=== PATIENT | female | born 2005 | race Caucasian/White ===

== ENCOUNTER 2023-07-22 16:12 | Emergency (ER) | payer BC, SELFPAY ==
[2023-07-22 16:15] VITALS: BP 138/84; BMI 30.7
[2023-07-22] MEDS: ZOFRAN ODT (ORALLY DISINTEGRATING) 4 MG PO (16:26)
[2023-07-22 16:30] LABS: % Basophils 0.4 % (0-2); % Immature Granulocytes 0.5 % (0-0.5); % Lymphocytes 4.9 % (20.5-51.1); % Monocytes 2.3 % (1.7-9.3); % Neutrophils 91.9 % (42.2-75.2); Absolute Basophils 0.1 10^3/uL (0-0.2); Absolute Immature Granulocytes 0.1 10^3/uL (0-0.05); Absolute Lymphocytes 0.8 10^3/uL (1.2-3.4); Absolute Monocytes 0.4 10^3/uL (0.1-0.6); Absolute Neutrophils 15.1 10^3/uL (1.4-6.5); Hematocrit 40.2 % (37.0-47.0); Hemoglobin 14.1 g/dL (12.0-16.0); Mean Corp Hgb Conc. 35.1 g/dL (33.0-37.0); Mean Corpuscular Hgb 27.9 pg (27.0-31.0); Mean Corpuscular Volume 79.4 fL (81.0-99.0); Mean Platelet Volume 11.9 fL (7.4-10.4); Nucleated Red Blood Cells % 0 %; Platelet Count 348 10^3/uL (130-400); Red Blood Cell Count 5.06 10^6/uL (4.20-5.40); Red Cell Dist. Width 12.9 % (11.5-14.5); White Blood Cell Count 16.4 10^3/uL (4.8-10.8)
[2023-07-22 16:34] LABS: Urine Albumin Trace (Neg - Trace); Urine Bilirubin Negative (Negative); Urine Character Clear (Clear); Urine Color Yellow; Urine Glucose Negative (Negative); Urine Ketone 2+ (Negative); Urine Leukocyte Trace (Negative); Urine Nitrite Negative (Negative); Urine Occult Blood 3+ (Negative); Urine Specific Gravity 1.015 (<1.030); Urine Urobilinogen Negative (Neg - 1+)
[2023-07-22 16:42] LABS: HCG, Serum Qualitative Screen Negative
[2023-07-22 16:46] LABS: AST (SGOT) 31 U/L (14-36); Albumin 5.3 g/dl (3.5-5.0); Alkaline Phosphatase 60 U/L (38-126); Blood Urea Nitrogen 12 mg/dl (7-17); Calcium 10.6 mg/dl (8.4-10.2); Carbon Dioxide 17 mmol/L (22-30); Chloride 108 mmol/L (98-107); Estimated Creatinine Clearance > 125 ml/min; Glucose 123 mg/dl (70-99); Lipase 43 U/L (23-300); Potassium 4.5 mmol/L (3.5-5.1); Sodium 138 mmol/L (135-145); Total Protein 8.3 g/dl (6.3-8.2); eGFR > 60.00
[2023-07-22 16:48] LABS: Urine Mucus Few; Urine Red Blood Cell 0-2 /HPF (0-2)
[2023-07-22 17:13] LABS: ALT (SGPT) 28 U/L (0-35)
--- NOTE | 2023-07-22 17:28 | ED.GENMED ---
History of Present Illness
General
Chief Complaint: Abdominal Pain
Time Seen by Provider: 07/22/23 17:28
Travel History
Have you had any contact with someone who has COVID-19?: No
Do you have any symptoms of coronavirus? Fever > 100 degrees, chills, cough, shortness of breath, sore throat, loss of taste or smell, muscle aches, or headache?: No
History of Present Illness
History of Present Illness:
HPI: The patient was on a camping trip over this weekend and this morning while still in [place], she developed diffuse abdominal pain, vomiting, and diarrhea. She thought maybe she could have a gallbladder issue however she reports pain in the
lower abdomen as well. She has been told that she had cannabinoid hyperemesis syndrome in the past however states that she does not smoke daily anymore and this feels different. She felt a bloated sensation.
EXAM:
GENERAL: Well appearing in minimal distress
HEENT: Moist oral mucosa
CARDIOVASCULAR: No murmurs, normal heart rate, regular rhythm, No chest wall tenderness
PULMONARY: No respiratory distress, breath sounds are clear and equal
ABDOMEN: Soft with no peritoneal signs, minimal diffuse tenderness, no distention
NEUROLOGIC: Excellent strength all extremities, no coordination deficits
PSYCHIATRIC: Appropriate mental status, normal insight and judgement
EXTREMITIES: Nontender, no edema, moves all extremities equally
SKIN: No rash, no lesions
TIME OF INITIAL ENCOUNTER: 5:30 PM
NUMBER AND COMPLEXITY OF PROBLEMS ADDRESSED AT THE ENCOUNTER
� Chronic conditions affecting care: History of cannabinoid hyperemesis syndrome
� Acute Exacerbation and/or Progression of Chronic Illness: This is an acute problem
� Differential Diagnosis includes: Gastroenteritis related to viral syndrome or foodborne illness, appendicitis/cholecystitis very unlikely as she has no focal findings on examination, highly doubt bowel obstruction, mesenteric
adenitis, epiploic appendagitis
AMOUNT AND/OR COMPLEXITY OF DATA TO BE REVIEWED AND ANALYZED
� I performed an independent evaluation of and my interpretation is:
EKG:
CT:
X-rays:
Laboratory Studies: White count 16.4 with left shift, bicarb 17, hCG negative, LFTs and lipase unremarkable
Other:
� Review of other/old records: No old records available for review
� Clinical information was obtained by an independent historian: I spoke to the boyfriend at bedside
� Prescriptions/Medications Considered but not given:
� Further testing considered but not performed: Considered imaging given the leukocytosis however the patient has associated diarrhea and overall feels markedly improved after 2 L of fluid.
RISK OF COMPLICATIONS AND/OR MORBIDITY OR MORTALITY OF PATIENT MANAGEMENT
� Social determinants of health affecting care: Lives at home
� Discussion with other providers:
� Escalation of care including admission/observation vs risk of discharge considered: Will give fluids as I suspected degree of dehydration given the low bicarb level and ketonuria. Also try Toradol and Pepcid. Patient feels
markedly improved on reassessment at 7:25 PM. Will hold off on any further testing at this time. Suspect gastroenteritis type of illness related to either viral syndrome or foodborne illness.
Phy Exam
Physical Exam
Physical Exam:
See HPI
Course
Orders/Labs/Results
Orders:
Orders
07/22/23 16:19
Test Result ONCE
07/22/23 16:25
Complete Blood Count/With Diff Urgent
Comprehensive Metabolic Panel Urgent
HCG, Serum Qualitative Screen Urgent
Lipase Urgent
Urinalysis Reflex To Culture Urgent
Date Specimen was Collected: 07/22/23
Time Specimen was Collected: 16:19
Urine Microscopic Reflex Cult Urgent
Ondansetron Orally Disint [Zofran Odt (Orally Disintegrating)] 4 mg PO NOW STA
07/22/23 16:26
Ondansetron Orally Disint [Zofran Odt (Orally Disintegrating)] 4 mg .ROUTE .[facility]
07/22/23 17:29
0.9% Sodium Chloride 1000 ml [Nss] 1,000 ml IV BOLUS
07/22/23 17:36
0.9% Sodium Chloride 1000 ml [Nss] 1,000 ml IV BOLUS
Famotidine [Pepcid] 20 mg IV NOW STA
Ketorolac [Toradol] 15 mg IV NOW STA
Abnormal Lab Results
07/22/23
16:25
WBC 16.4 H 10^3/uL
(4.8-10.8)
MCV 79.4 L fL
(81.0-99.0)
MPV 11.9 H fL
(7.4-10.4)
Abs Immat Gran (auto) 0.1 H 10^3/uL
(0-0.05)
Absolute Neuts (auto) 15.1 H 10^3/uL
(1.4-6.5)
Absolute Lymphs (auto) 0.8 L 10^3/uL
(1.2-3.4)
Neutrophils % 91.9 H %
(42.2-75.2)
Lymphocytes % 4.9 L %
(20.5-51.1)
Chloride 108 H mmol/L
(98-107)
Carbon Dioxide 17 L mmol/L
(22-30)
Glucose 123 H mg/dl
(70-99)
Calcium 10.6 H mg/dl
(8.4-10.2)
Total Protein 8.3 H g/dl
(6.3-8.2)
Albumin 5.3 H g/dl
(3.5-5.0)
Urine Ketones 2+ A
(Negative)
Ur Occult Blood Reflex 3+ A
(Negative)
Leukocyte Esterase Rfl Trace A
(Negative)
07/22/23 16:25
07/22/23 16:25
Vital Signs
Initial and Last Documented VS:
Initial Vital Signs
Temp Pulse Resp BP Pulse Ox
98.1 F 66 16 138/84 100
07/22/23 16:15 07/22/23 16:15 07/22/23 16:15 07/22/23 16:15 07/22/23 16:15
Last Documented Vital Signs
Temp Pulse Resp BP Pulse Ox
98.1 F 66 16 138/84 100
07/22/23 16:15 07/22/23 16:15 07/22/23 16:15 07/22/23 16:15 07/22/23 16:15
*Critical Care Note
Total Time (30-74mins, 75-104mins- exclusive of procedures): Not Applicable
ED Attending Note
-
Portions of this chart may have been created with voice recognition software.� Occasional wrong word or��sound alike� substitutions may have occurred due to the inherent limitations of voice recognition software.
Discharge Plan
Departure
Patient Disposition: Home (Routine Discharge)
Date of Disposition: 07/22/23
Time of Disposition: 19:26
Patient with high blood pressure during this ER visit?: Yes
Discharge Problem:
Acute dehydration
Prescriptions:
No Action
hydroxyzine HCl 50 mg Tablet
50 mg PO DAILY
buspirone 10 mg Tablet
10 mg PO BID
sertraline 100 mg Tablet
100 mg PO DAILY
Referrals:
Yrn Urias MD [Family Provider] -
Activity Restrictions/Additional Instructions:
We gave you 2 L of fluid. Your blood work suggested a degree of dehydration. You also had ketones in your urine which also suggests dehydration. Follow-up your primary care doctor or return here if worse.
Interventions
Interventions:
*Risk Screen - Suicide Last Done: 07/22/23 16:15
*General Assessment Last Done: 07/22/23 19:04
*Neglect/Abuse Screening Last Done: 07/22/23 16:15
ED- Fall Risk Assessment Last Done: 07/22/23 16:15
*ED COVID-19 Vaccine History Last Done: 07/22/23 19:04
AG-Cyflhi-Fldnpundep Assessment Last Done: 07/22/23 18:05
Discharge Date and Time
Print Language: WELSH
--- NOTE | 2023-07-22 17:32 | EDRN ---
Dr. Hernandez in room w/ pt and family at this time.
[2023-07-22] MEDS: TORADOL 15 MG IV (18:00)
[2023-07-22] MEDS: NSS 1000 IV ×2 (18:00→18:04)
[2023-07-22] MEDS: PEPCID 20 MG IV (18:01)
[2023-07-22 18:05] VITALS: BMI 30.1
[2023-07-22 19:50] VITALS: BP 114/54
== END 2023-07-22 19:52 | disposition home or self-care (01) ==
LOC: EMR 16:12
PROVIDERS: EMERGENCY PHYSICIAN Emergency Medicine; FAMILY PHYSICIAN Pediatrics
DX: E86.0 Dehydration (principal); R10.84 Generalized abdominal pain; R11.10 Vomiting, unspecified; R19.7 Diarrhea, unspecified; R14.0 Abdominal distension (gaseous); R03.0 Elevated blood-pressure reading, without diagnosis of hypertension; Z88.1 Allergy status to other antibiotic agents
CPT/HCPCS: 99284; 96374; 96375; 96361; 80053; 81003; 81015; 83690; 84703; 85025

== ENCOUNTER 2023-07-25 06:14 | Emergency (ER) | payer BC, SELFPAY ==
[2023-07-25 06:17] VITALS: BP 148/78
[2023-07-25 06:27] VITALS: BMI 29.5
[2023-07-25 06:37] VITALS: BP 117/64
--- NOTE | 2023-07-25 07:05 | ED.GENMED ---
History of Present Illness
General
Chief Complaint: Abdominal Symptoms
Source: patient
Exam Limitations: none
Time Seen by Provider: 07/25/23 06:34
Nursing documentation reviewed up to this point in time: agreed with
Travel History
Have you had any contact with someone who has COVID-19?: No
Do you have any symptoms of coronavirus? Fever > 100 degrees, chills, cough, shortness of breath, sore throat, loss of taste or smell, muscle aches, or headache?: No
History of Present Illness
History of Present Illness:
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 Patient was evaluated at different emergency department
yesterday and was discharged home after receiving IV fluids. Since she has been home, patient states that her symptoms have persisted. Denies fever or chills. Denies dizziness. Denies headache. Denies chest pain or shortness of breath. Patient
admits to having last used marijuana 1 week ago.
Review of Systems
Review of Systems
Allergies reviewed?: Yes
All Other Systems: ROS reviewed and negative except as documented in HPI and ROS
Constitutional: Reports no symptoms; Denies fever
EENT: Reports no symptoms
Respiratory: Reports no symptoms
Cardiac: Reports no symptoms
ABD/GI: Reports abdominal pain, nausea and vomiting
Musculoskeletal: Reports no symptoms
Skin: Reports no symptoms
Neurological: Reports no symptoms
Phy Exam
Physical Exam
Physical Exam:
Physical Exam
General: mild distress, not acutely ill. afebrile
Head: nc/at. eomi
Neck: supple. no meningeal signs.
Heart: s1/s2 regular rate and rhythm, no murmur. equal radial pulses.
Lungs: no acute respiratory distress. clear bilaterally
Abdomen: normal bowel sounds. not tender. no distention
Neuro: alert and oriented. no focal neurological deficits
Skin: no rash
Psychiatric: well kept. interactive and cooperative
Extremities: no edema. no calf tenderness.
Course
Orders/Labs/Results
Orders:
Orders
07/25/23 06:24
Test Result ONCE
07/25/23 06:44
Complete Blood Count/With Diff Urgent
07/25/23 07:03
Add On- LAB Urgent
Tests Added?: magnesium
Lorazepam [Ativan] 1 mg IV NOW STA
07/25/23 07:04
Electrocardiogram (*1) Urgent
Reason for Study: QTc Monitoring
EKG- Treatment ONCE
0.9% Sodium Chloride 1000 ml [Nss] 1,000 ml IV BOLUS
07/25/23 07:05
Ondansetron Injectable [Zofran] 4 mg IV NOW STA
07/25/23 07:38
Comprehensive Metabolic Panel Urgent
HCG, Serum Qualitative Screen Urgent
Magnesium Urgent
Comment: ADD ON
07/25/23 09:39
0.9% Sodium Chloride 500 ml [Nss] 500 ml IV BOLUS
Ondansetron Injectable [Zofran] 4 mg IV NOW STA
07/25/23 09:45
Ketorolac [Toradol] 15 mg IV NOW STA
Pantoprazole [Protonix IV] 40 mg IV NOW STA
07/25/23 11:45
Basic Metabolic Panel Urgent
07/25/23 11:46
Lorazepam [Ativan] 1 mg PO NOW STA
Abnormal Lab Results
07/25/23 07/25/23 07/25/23
06:44 07:38 11:45
MCV 79.6 L fL
(81.0-99.0)
MPV 12.2 H fL
(7.4-10.4)
Absolute Neuts (auto) 7.1 H 10^3/uL
(1.4-6.5)
Absolute Monos (auto) 0.7 H 10^3/uL
(0.1-0.6)
Neutrophils % 76.8 H %
(42.2-75.2)
Lymphocytes % 14.2 L %
(20.5-51.1)
Chloride 109 H mmol/L 111 H mmol/L
(98-107) (98-107)
Carbon Dioxide 14 L* mmol/L 17 L mmol/L
(22-30) (22-30)
Glucose 109 H mg/dl
(70-99)
Total Bilirubin 1.5 H mg/dl
(0.2-1.3)
07/25/23 06:44
07/25/23 11:45
Vital Signs
Initial and Last Documented VS:
Initial Vital Signs
Temp Pulse Resp BP Pulse Ox
97.8 F 60 28 148/78 100
07/25/23 06:17 07/25/23 06:17 07/25/23 06:17 07/25/23 06:17 07/25/23 06:17
Last Documented Vital Signs
Temp Pulse Resp BP Pulse Ox
97.8 F 56 14 122/74 99
07/25/23 06:17 07/25/23 12:45 07/25/23 12:30 07/25/23 11:00 07/25/23 09:07
MDM/Problems Addressed
MDM/Problems Addressed:
Patient reports significant improvement symptoms after treatment in ED, without any further vomiting episodes. Patient remains afebrile, hemodynamically stable, and nontoxic-appearing. Initial metabolic acidosis, improved with IV fluid treatment,
as reflected with repeat blood work. Patient does understand that she not to engage in use of marijuana, as this appears to be a trigger for her symptoms. Patient will be discharged home in stable condition, to the care of of her friend, with
recommendation to follow-up with PCP with any further concerns. Prescription for 1 additional tablet of Ativan will be provided, to be used as needed at home.
*EKG
Interpreted by ED Provider?: Yes
EKG Intrepretation Date: 07/25/23
Heart Rate: 62
Rate: normal
Rhythm: sinus and sinus arrhythmia
Pierson: normal axis
Interval: normal interval and normal QT interval
*Critical Care Note
Total Time (30-74mins, 75-104mins- exclusive of procedures): Not Applicable
ED Attending Note
-
Portions of this chart may have been created with voice recognition software.� Occasional wrong word or��sound alike� substitutions may have occurred due to the inherent limitations of voice recognition software.
Discharge Plan
Departure
Patient Disposition: Home (Routine Discharge)
Date of Disposition: 07/25/23
Time of Disposition: 12:45
Patient with high blood pressure during this ER visit?: Yes
Condition: Good
Discharge Problem:
Nausea and vomiting
Instructions: Nausea and Vomiting, Adult (DC)
Prescriptions:
New
lorazepam [Ativan] 1 mg tablet
1 mg PO DAILY PRN (Reason: anxiety) Qty: 1 0RF
No Action
hydroxyzine HCl 50 mg Tablet
50 mg PO DAILY
buspirone 10 mg Tablet
10 mg PO BID
sertraline 100 mg Tablet
100 mg PO DAILY
Referrals:
Yrn Urias MD [Family Provider] -
Activity Restrictions/Additional Instructions:
As discussed, please follow-up with your primary care physician with any further concerns. Strongly recommend cessation of further marijuana use, as this appears to be a trigger for your symptoms. Your prescription has been sent electronically to
[facility] pharmacy in [place].
Interventions
Interventions:
*Risk Screen - Suicide Last Done: 07/25/23 07:44
*General Assessment Last Done: 07/25/23 06:27
*Neglect/Abuse Screening Last Done: 07/25/23 07:44
ED- Fall Risk Assessment Last Done: 07/25/23 06:27
*ED COVID-19 Vaccine History Last Done: 07/25/23 06:27
*Nursing Disposition Last Done: 07/25/23 13:03
ZL-Rotzms-Fqgwafsyqo Assessment Last Done: 07/25/23 06:27
Discharge Date and Time
Discharge Date/Time: 07/25/23 13:03
Print Language: MEXICAN
[2023-07-25 07:16] VITALS: BP 122/78
[2023-07-25] MEDS: NSS 1000 IV (07:41)
[2023-07-25] MEDS: ZOFRAN 4 MG IV ×2 (07:45→10:01)
[2023-07-25 07:48] LABS: % Basophils 1.1 % (0-2); % Eosinophils 0.1 % (0-6); % Immature Granulocytes 0.3 % (0-0.5); % Lymphocytes 14.2 % (20.5-51.1); % Monocytes 7.5 % (1.7-9.3); % Neutrophils 76.8 % (42.2-75.2); Absolute Basophils 0.1 10^3/uL (0-0.2); Absolute Lymphocytes 1.3 10^3/uL (1.2-3.4); Absolute Monocytes 0.7 10^3/uL (0.1-0.6); Absolute Neutrophils 7.1 10^3/uL (1.4-6.5); Hematocrit 39.8 % (37.0-47.0); Hemoglobin 13.9 g/dL (12.0-16.0); Mean Corp Hgb Conc. 34.9 g/dL (33.0-37.0); Mean Corpuscular Hgb 27.8 pg (27.0-31.0); Mean Corpuscular Volume 79.6 fL (81.0-99.0); Mean Platelet Volume 12.2 fL (7.4-10.4); Nucleated Red Blood Cells % 0 %; Platelet Count 293 10^3/uL (130-400); Red Cell Dist. Width 12.9 % (11.5-14.5); White Blood Cell Count 9.2 10^3/uL (4.8-10.8)
[2023-07-25] MEDS: ATIVAN 1 MG IV (07:49)
[2023-07-25 07:53] VITALS: BP 108/73
[2023-07-25 07:58] LABS: HCG, Serum Qualitative Screen Negative
[2023-07-25 08:06] LABS: ALT (SGPT) 20 U/L (0-35); AST (SGOT) 27 U/L (14-36); Alkaline Phosphatase 58 U/L (38-126); Blood Urea Nitrogen 8 mg/dl (7-17); Calcium 10.2 mg/dl (8.4-10.2); Carbon Dioxide 14 mmol/L (22-30); Chloride 109 mmol/L (98-107); Estimated Creatinine Clearance 122 ml/min; Glucose 109 mg/dl (70-99); Magnesium 1.8 mg/dl (1.6-2.3); Potassium 3.6 mmol/L (3.5-5.1); Sodium 139 mmol/L (135-145); Total Bilirubin 1.5 mg/dl (0.2-1.3); Total Protein 7.9 g/dl (6.3-8.2); eGFR > 60.00
[2023-07-25 09:07] VITALS: BP 124/70
[2023-07-25] MEDS: NSS 500 IV (09:56)
[2023-07-25] MEDS: TORADOL 15 MG IV (09:58)
[2023-07-25] MEDS: PROTONIX IV 40 MG IV (10:06)
[2023-07-25 11:00] VITALS: BP 122/74
[2023-07-25] MEDS: ATIVAN 1 MG PO (11:49)
[2023-07-25 12:05] LABS: Blood Urea Nitrogen 7 mg/dl (7-17); Carbon Dioxide 17 mmol/L (22-30); Chloride 111 mmol/L (98-107); Estimated Creatinine Clearance 122 ml/min; Glucose 95 mg/dl (70-99); Sodium 137 mmol/L (135-145); eGFR > 60.00
[2023-07-25 12:25] LABS: Potassium 3.5 mmol/L (3.5-5.1)
== END 2023-07-25 13:03 | disposition home or self-care (01) ==
LOC: EMR 06:14
PROVIDERS: EMERGENCY PHYSICIAN Emergency Medicine; FAMILY PHYSICIAN Pediatrics
DX: R11.2 Nausea with vomiting, unspecified (principal); R10.9 Unspecified abdominal pain; E87.20 Acidosis, unspecified; F12.90 Cannabis use, unspecified, uncomplicated
CPT/HCPCS: 99284; 96374; 96375 ×3; 96361 ×2; 96376; 80048; 80053; 83735; 84703; 85025; 93005

== ENCOUNTER 2024-03-12 10:17 | Emergency (ER) | payer BC, SELFPAY ==
[2024-03-12 11:06] LABS: % Basophils 1.6 % (0-2); % Eosinophils 0.3 % (0-6); % Immature Granulocytes 0.3 % (0-0.5); % Lymphocytes 16.2 % (20.5-51.1); % Neutrophils 75.6 % (42.2-75.2); Absolute Basophils 0.1 10^3/uL (0-0.2); Absolute Lymphocytes 1.4 10^3/uL (1.2-3.4); Absolute Monocytes 0.5 10^3/uL (0.1-0.6); Absolute Neutrophils 6.5 10^3/uL (1.4-6.5); Hematocrit 45.4 % (37.0-47.0); Hemoglobin 15.2 g/dL (12.0-16.0); Mean Corp Hgb Conc. 33.5 g/dL (33.0-37.0); Mean Corpuscular Hgb 27.1 pg (27.0-31.0); Mean Corpuscular Volume 80.9 fL (81.0-99.0); Mean Platelet Volume 12.2 fL (7.4-10.4); Nucleated Red Blood Cells % 0 %; Platelet Count 335 10^3/uL (130-400); Red Blood Cell Count 5.61 10^6/uL (4.20-5.40); Red Cell Dist. Width 13.8 % (11.5-14.5); White Blood Cell Count 8.6 10^3/uL (4.8-10.8)
[2024-03-12 11:08] LABS: HCG, Serum Qualitative Screen Negative
[2024-03-12 11:14] LABS: ALT (SGPT) 97 U/L (0-35); AST (SGOT) 32 U/L (14-36); Albumin 5.5 g/dl (3.5-5.0); Alkaline Phosphatase 66 U/L (38-126); Blood Urea Nitrogen 16 mg/dl (7-17); Calcium 10.3 mg/dl (8.4-10.2); Carbon Dioxide 20 mmol/L (22-30); Chloride 100 mmol/L (98-107); Glucose 132 mg/dl (70-99); Sodium 138 mmol/L (135-145); Total Bilirubin 1.2 mg/dl (0.2-1.3); Total Protein 8.5 g/dl (6.3-8.2); eGFR > 60.00
[2024-03-12 11:15] LABS: COVID-19 Antigen Negative (Negative)
--- NOTE | 2024-03-12 12:15 | ED.GENMED ---
History of Present Illness
General
Chief Complaint: Abdominal Symptoms
Time Seen by Provider: 03/12/24 12:02
History of Present Illness
History of Present Illness:
19-year-old female with history of cyclic vomiting presents to the emergency department for evaluation of nausea vomiting and generalized abdominal pain for the past 24 hours. She is also had moderate amount of diarrhea. No hematemesis or
hematochezia. No fevers but does have chills. No ill contacts. States it feels different than her typical cyclic vomiting flareups. No history of abdominal surgeries
Review of Systems
Review of Systems
Allergies reviewed?: Yes
All Other Systems: ROS reviewed and negative except as documented in HPI and ROS
Phy Exam
Physical Exam
Physical Exam:
GEN: Ill appearing, no immediate distress
HEENT: Oral mucosa moist, no scleral icterus
Cardiac: Regular rate
Lung: No respiratory distress, no tachypnea
Abdomen: Soft, grossly nontender
MSK: No gross deformity or injuries
Skin: Good color, no pallor or jaundice, no rashes
Neuro: AO x3, moves all extremities freely
Psych: Calm, cooperative
Course
Orders/Labs/Results
Orders:
Orders
03/12/24 10:40
Test Result ONCE
03/12/24 10:47
COVID-19 Antigen Urgent
Source: Nasal Swab
Complete Blood Count/With Diff Urgent
Comprehensive Metabolic Panel Urgent
HCG, Serum Qualitative Screen Urgent
Influenza A+B Rapid Molecular Urgent
ZARINA Source: Nasal Swab
Specimen Description:
03/12/24 12:15
0.9% Sodium Chloride 1000 ml [Nss] 1,000 ml IV BOLUS
Ondansetron Injectable [Zofran] 4 mg IV NOW STA
03/12/24 14:49
0.9% Sodium Chloride 500 ml [Nss] 500 ml IV BOLUS
Ketorolac [Toradol] 15 mg IV NOW STA
Metoclopramide [Reglan] 10 mg IV NOW STA
Abnormal Lab Results
03/12/24
10:47
RBC 5.61 H 10^6/uL
(4.20-5.40)
MCV 80.9 L fL
(81.0-99.0)
MPV 12.2 H fL
(7.4-10.4)
Neutrophils % 75.6 H %
(42.2-75.2)
Lymphocytes % 16.2 L %
(20.5-51.1)
Carbon Dioxide 20 L mmol/L
(22-30)
Glucose 132 H mg/dl
(70-99)
Calcium 10.3 H mg/dl
(8.4-10.2)
ALT 97 H U/L
(0-35)
Total Protein 8.5 H g/dl
(6.3-8.2)
Albumin 5.5 H g/dl
(3.5-5.0)
03/12/24 10:47
03/12/24 10:47
Vital Signs
Initial and Last Documented VS:
Initial Vital Signs
Temp Pulse Resp Pulse Ox
97.4 F 52 18 99
03/12/24 10:37 03/12/24 10:37 03/12/24 10:37 03/12/24 10:37
Last Documented Vital Signs
Temp Pulse Resp BP Pulse Ox
97.4 F 52 18 98/66 98
03/12/24 10:37 03/12/24 10:37 03/12/24 10:37 03/12/24 13:00 03/12/24 13:15
*Critical Care Note
Total Time (30-74mins, 75-104mins- exclusive of procedures): Not Applicable
ED Attending Note
-
Portions of this chart may have been created with voice recognition software.� Occasional wrong word or��sound alike� substitutions may have occurred due to the inherent limitations of voice recognition software.
Discharge Plan
Departure
Patient Disposition: Home (Routine Discharge)
Date of Disposition: 03/12/24
Time of Disposition: 16:25
Patient with high blood pressure during this ER visit?: No
Condition: Good
Discharge Problem:
Gastroenteritis
Instructions: Nausea and Vomiting, Adult (DC)
Prescriptions:
New
ondansetron 4 mg tablet,disintegrating
4 mg PO TIDPRN PRN (Reason: nausea/vomiting) Qty: 10 0RF
No Action
hydroxyzine HCl 50 mg Tablet
50 mg PO DAILY
buspirone 10 mg Tablet
10 mg PO BID
sertraline 100 mg Tablet
100 mg PO DAILY
lorazepam [Ativan] 1 mg tablet
1 mg PO DAILY PRN (Reason: anxiety) Qty: 1 0RF
Referrals:
NONE,* [Family Provider] -
Interventions
Interventions:
*Risk Screen - Suicide Last Done: 03/12/24 12:30
*General Assessment Last Done: 03/12/24 12:30
*Neglect/Abuse Screening Last Done: 03/12/24 12:30
*ED COVID-19 Vaccine History Last Done: 03/12/24 12:30
*Nursing Disposition Last Done: 03/12/24 16:43
GK-Ohethd-Uhdzmtlucg Assessment Last Done: 03/12/24 12:30
Discharge Date and Time
Discharge Date/Time: 03/12/24 16:44
Print Language: ITALIAN
[2024-03-12] MEDS: ZOFRAN 4 MG IV (12:22)
[2024-03-12] MEDS: NSS 1000 IV (12:22)
[2024-03-12 12:24] VITALS: BP 127/77
[2024-03-12 12:57] VITALS: BP 99/71
[2024-03-12 13:00] VITALS: BP 98/66
[2024-03-12] MEDS: NSS 500 IV (14:53)
[2024-03-12] MEDS: REGLAN 10 MG IV (14:54)
[2024-03-12] MEDS: TORADOL 15 MG IV (14:55)
== END 2024-03-12 16:44 | disposition home or self-care (01) ==
LOC: EMR 10:17
PROVIDERS: EMERGENCY PHYSICIAN Emergency Medicine
DX: K52.9 Noninfective gastroenteritis and colitis, unspecified (principal)
CPT/HCPCS: 99284; 96374; 96375 ×2; 96361 ×2; 80053; 84703; 85025; 87502; 87811